=== PATIENT | male | born 1980 | race Caucasian/White ===

== ENCOUNTER 2022-02-06 15:12 | Emergency (ER) | payer OTHER ==
[2022-02-06 15:17] VITALS: BP 134/84; PULSE 88; TEMP 97.6; BMI 27.5
== END 2022-02-06 15:34 | disposition home or self-care (01) ==
LOC: JERFT 15:12
DX: H93.19 Tinnitus, unspecified ear (principal); Z01.89 Encounter for other specified special examinations
CPT/HCPCS: 99282-25